=== PATIENT | female | born 1975 | race Caucasian/White ===

== ENCOUNTER 2019-12-06 08:49 | Outpatient (CLI) | payer OTHER | END 2019-12-06 09:09 | disposition home or self-care (01) | LOC: SONOGRAMA 08:49 | DX: N84.0 Polyp of corpus uteri (principal); E55.9 Vitamin D deficiency, unspecified; N64.3 Galactorrhea not associated with childbirth; N60.11 Diffuse cystic mastopathy of right breast; N60.12 Diffuse cystic mastopathy of left breast; E66.3 Overweight; N39.3 Stress incontinence (female) (male); E66.8 Other obesity ==